=== PATIENT | female | born 1960 | race Hispanic/Latino ===

== ENCOUNTER 2017-12-11 08:21 | Emergency (ER) | payer OTHER, MEDICARE ==
[2017-12-11] MEDS ORDERED: IBUPROFEN 600 MG TABLET ONE (08:52)
[2017-12-11 09:14] LABS: RAPID GROUP A STREP NEGATIVE (NEGATIVE)
[2017-12-11] MEDS ORDERED: DEXAMETHASONE SOD PHOSPHATE 10MG/ML 1ML VIAL ONE (10:10)
[2018-01-23] MEDS ORDERED: PREG75 PO (12:16)
[2018-01-23] MEDS ORDERED: TRAM50TA4 PO (12:16)
[2018-01-23] MEDS ORDERED: CALC-866 PO (12:16)
[2018-01-23] MEDS ORDERED: ATOR10TA69 PO (12:16)
[2018-01-23] MEDS ORDERED: LISI1TAB9 PO (12:16)
== END 2017-12-11 10:43 | disposition home or self-care (01) ==
LOC: EDH 08:21
DX: J10.1 Influenza due to other identified influenza virus with other respiratory manifestations (principal); R50.81 Fever presenting with conditions classified elsewhere; E78.5 Hyperlipidemia, unspecified; I10 Essential (primary) hypertension; Z98.890 Other specified postprocedural states
CPT/HCPCS: 71046; 87804 ×2; 87880; 96372; 99285; J1100

== ENCOUNTER 2018-01-24 07:46 | Day surgery (SDC) | payer OTHER, MEDICARE ==
[~2018-01-24] VITALS: Ht 154.9 cm; Wt 74.8 kg
[~2018-01-24 07:46] MED LIST: ATOR10TA69 PO; CALC-866 PO; LISI1TAB9 PO; PREG75 PO; SODIUM CHLORIDE 0.9% 1000ML 1,000 ML IV ONE; TRAM50TA4 PO
[2018-01-24 07:53] VITALS: BP 99/51
[2018-01-24] MEDS ORDERED: PROPOFOL 10 MG/ML 20ML VIAL IV ONE ×2 (09:35)
[2018-01-24] MEDS ORDERED: FENTANYL CITRATE PF 50 MCG/1 ML 2ML VIAL ONE (09:35)
[2018-01-24 10:08] VITALS: BP 99/54
== END 2018-01-24 10:47 ==
LOC: DAH 07:46
PROVIDERS: ATTEND Internal Medicine Gastroenterology
DX: Z09 Encounter for follow-up examination after completed treatment for conditions other than malignant neoplasm (principal); Z86.010 Personal history of colon polyps; D12.1 Benign neoplasm of appendix; I10 Essential (primary) hypertension; E78.5 Hyperlipidemia, unspecified; Z90.49 Acquired absence of other specified parts of digestive tract; Z98.890 Other specified postprocedural states; Z68.32 Body mass index [BMI] 32.0-32.9, adult; Z79.899 Other long term (current) drug therapy
CPT/HCPCS: 45380; 88305; A4606; J2704 ×2; J3010; J7030

== ENCOUNTER 2018-10-08 18:07 | Emergency (ER) | payer OTHER, MEDICARE ==
[~2018-10-08 18:07] MED LIST changes: -SODIUM CHLORIDE 0.9% 1000ML 1,000 ML IV ONE
[2018-10-08 19:17] LABS: RAPID GROUP A STREP NEGATIVE (NEGATIVE)
[2018-10-08] MEDS ORDERED: DEXAMETHASONE SOD PHOSPHATE 10MG/ML 1ML VIAL ONE (19:47)
== END 2018-10-08 19:58 | disposition home or self-care (01) ==
LOC: EDH 18:07
DX: J10.1 Influenza due to other identified influenza virus with other respiratory manifestations (principal); E78.5 Hyperlipidemia, unspecified; I10 Essential (primary) hypertension
CPT/HCPCS: 87804 ×2; 87880; 96372; 99283; J1100

== ENCOUNTER 2018-10-19 08:31 | Emergency (ER) | payer OTHER, MEDICARE ==
[2018-10-19] MEDS ORDERED: ACETAMINOPHEN 325 MG TAB ONE (08:55)
[2018-10-19] MEDS ORDERED: IPRATROPIUM/ALBUTEROL SULFATE 3 ML SOLUTION IH ONE (08:58)
== END 2018-10-19 10:59 | disposition home or self-care (01) ==
LOC: EDH 08:31
DX: J18.8 Other pneumonia, unspecified organism (principal); I10 Essential (primary) hypertension; E78.5 Hyperlipidemia, unspecified
CPT/HCPCS: 71046; 94640

== ENCOUNTER 2019-01-30 12:00 | Emergency (ER) | payer OTHER, MEDICARE ==
[2019-01-30 12:39] LABS: APPEARANCE,URINE Clear (CLEAR); BILIRUBIN,URINE Negative (NEGATIVE); COLOR,URINE Yellow (YELLOW); GLUCOSE, URINE (UA) Negative (NEGATIVE); KETONES,URINE Negative (NEGATIVE); LEUKOCYTE ESTERASE ,URINE Moderate (NEGATIVE); NITRATE,URINE Negative (NEGATIVE); OCCULT BLOOD,URINE Nonhemolyzed Trace (NEGATIVE); PROTEIN,URINE Negative (NEGATIVE); UROBILINOGEN,URINE 0.2 mg/dL (0.2-1.0)
[2019-01-30] MEDS ORDERED: ONDANSETRON ODT 4 MG TAB ONE (12:39)
[2019-01-30] MEDS ORDERED: MORPHINE SULFATE 5 MG/ML VIAL ONE (12:40)
[2019-01-30 12:57] LABS: BACTERIA,URINE Rare /HPF (None Seen); RBC,URINE 0-1 /HPF (0-1); SQUAMOUS EPITHELIAL CELL,UR Rare /HPF (0-2)
== END 2019-01-30 13:30 | disposition home or self-care (01) ==
LOC: EDH 12:00
DX: N39.0 Urinary tract infection, site not specified (principal); M54.5 Low back pain; I10 Essential (primary) hypertension; E78.5 Hyperlipidemia, unspecified; Z98.890 Other specified postprocedural states
CPT/HCPCS: 72100; 81001; 96372; 99284; J2270

== ENCOUNTER 2019-05-11 07:53 | Emergency (ER) | payer OTHER, MEDICARE ==
[2019-05-11 08:44] LABS: APPEARANCE,URINE CLEAR (CLEAR); BILIRUBIN,URINE NEGATIVE (NEGATIVE); COLOR,URINE YELLOW (YELLOW); GLUCOSE, URINE (UA) NEGATIVE (NEGATIVE); KETONES,URINE NEGATIVE (NEGATIVE); LEUKOCYTE ESTERASE ,URINE SMALL (NEGATIVE); NITRATE,URINE NEGATIVE (NEGATIVE); OCCULT BLOOD,URINE SMALL (NEGATIVE); PROTEIN,URINE NEGATIVE (NEGATIVE); UROBILINOGEN,URINE 0.2 mg/dL (0.2-1.0)
[2019-05-11] MEDS ORDERED: ONDANSETRON HCL 4 MG/2 ML VIAL ONE (08:44)
[2019-05-11] MEDS ORDERED: SODIUM CHLORIDE 0.9% 1000ML 1,000 ML IV ONE (08:45)
[2019-05-11] MEDS ORDERED: MORPHINE SULFATE 4 MG/1ML SYG ONE ×2 (08:45→10:06)
[2019-05-11 09:10] LABS: BACTERIA,URINE Few /HPF (None Seen); MUCUS,URINE Few LPF (None Seen); RBC,URINE 0-1 /HPF (0-1); SQUAMOUS EPITHELIAL CELL,UR Moderate /HPF (0-2)
[2019-05-11 09:22] LABS: BASOPHILS % (AUTO) 0.8 % (0.0-5.0); HEMATOCRIT 40.7 % (36-48); LYMPHOCYTES % (AUTO) 25.1 % (21.0-51.0); MEAN CORPUSCULAR HEMOGLOBIN 29.9 pg (27.0-33.0); MEAN CORPUSCULAR HGB CONC 33.9 g/dL (32.0-36.0); MEAN CORPUSCULAR VOLUME 88.1 fL (79-99); MONOCYTES % (AUTO) 5.9 % (3.0-13.0); NEUTROPHILS % (AUTO) 66.2 % (40.0-77.0); NUCLEATED RED BLOOD CELLS 0.1 % (0.0-0.19); PLATELET COUNT (AUTO) 251 K/uL (130-400); RED BLOOD CELL COUNT(AUTO) 4.62 MIL/uL (4.00-5.50); RED CELL DISTRIBUTION WIDTH 14.5 % (11.0-15.5); WHITE BLOOD COUNT (AUTO) 6.7 K/uL (4.8-10.8)
[2019-05-11 09:37] LABS: CREATININE 0.8 mg/dL (0.5-1.5); POTASSIUM 3.8 mmol/L (3.5-5.1)
[2019-05-11 09:43] LABS: ALBUMIN 3.5 g/dL (3.5-5.0); BILIRUBIN,TOTAL 0.2 mg/dL (0.2-1.0); TOTAL PROTEIN, SERUM 6.5 g/dL (6.0-8.3)
[2019-05-11] MEDS ORDERED: CEFTRIAXONE SODIUM 1 GM ONE (10:06)
== END 2019-05-11 11:37 | disposition home or self-care (01) ==
LOC: EDH 07:53
DX: K52.9 Noninfective gastroenteritis and colitis, unspecified (principal); N39.0 Urinary tract infection, site not specified; I10 Essential (primary) hypertension; E78.5 Hyperlipidemia, unspecified
CPT/HCPCS: 36415; 74177; 80053; 81001; 83690; 85025; 93005; 96361; 96374; 96375; 96376; 99285; J0696; J2270 ×2; J2405; J7030

== ENCOUNTER 2019-05-26 13:38 | Emergency (ER) | payer OTHER, MEDICARE ==
[2019-05-26] MEDS ORDERED: KETOROLAC TROMETHAMINE 60 MG/2 ML VIAL ONE (13:52)
[2019-05-26] MEDS ORDERED: ACETAMINOPHEN EXTRA STRENGTH 500 MG TABLET ONE (13:52)
[2019-05-26] MEDS ORDERED: LIDOCAINE 5% TOPICAL PATCH TP ONE (13:52)
[2019-05-26] MEDS ORDERED: ORPHENADRINE CITRATE 30 MG/ML ML ONE (13:52)
== END 2019-05-26 15:09 | disposition home or self-care (01) ==
LOC: EDH 13:38
DX: M54.5 Low back pain (principal); I10 Essential (primary) hypertension; E78.5 Hyperlipidemia, unspecified; Z98.890 Other specified postprocedural states
CPT/HCPCS: 96372 ×2; 99284; J1885; J2360

== ENCOUNTER → 2023-07-10 | Outpatient (CLI) | payer OTHER, MEDICARE ==
[~2023-07-10] MED LIST changes: +LISI1TAB49 PO; -LISI1TAB9 PO
== END | disposition home or self-care (01) ==
LOC: RAH 12:42
PROVIDERS: ATTEND Internal Medicine
DX: I35.0 Nonrheumatic aortic (valve) stenosis (principal); R01.1 Cardiac murmur, unspecified
CPT/HCPCS: 93306

== ENCOUNTER → 2023-09-25 | Outpatient (CLI) | payer OTHER | END | disposition home or self-care (01) | LOC: RAH 12:09 | PROVIDERS: ATTEND Internal Medicine Cardiovascular Disease | DX: Z13.6 Encounter for screening for cardiovascular disorders (principal) | CPT/HCPCS: 75571 ==

== ENCOUNTER → 2024-06-10 | Outpatient (CLI) | payer MEDICARE, OTHER | END | disposition home or self-care (01) | LOC: CANPRECLI → RAH 08:01 | PROVIDERS: ATTEND Internal Medicine | DX: M85.88 Other specified disorders of bone density and structure, other site (principal); Z78.0 Asymptomatic menopausal state | CPT/HCPCS: 77080 ==

== ENCOUNTER 2025-06-04 08:55 | Day surgery (SDC) | payer OTHER ==
[2025-06-02 12:01] LABS: IMMATURE GRANULOCYTE ABSOLUTE 0.02 K/uL (0-1); NUCLEATED RED BLOOD CELLS 0.0 % (0.0-0.19); PLATELET COUNT (AUTO) 327 K/uL (130-400); RED BLOOD CELL COUNT(AUTO) 4.73 MIL/uL (4.00-5.50); RED CELL DISTRIBUTION WIDTH 16.9 % (11.0-15.5); WHITE BLOOD COUNT (AUTO) 6.9 K/uL (4.8-10.8)
[2025-06-02 12:08] LABS: CREATININE 0.8 mg/dL (0.5-1.0); GLOMERULAR FILTR. RATE CALC 81.0 mL/min (>90); GLUCOSE,RANDOM 171.0 mg/dL (70-105); SODIUM SERUM 144.0 mmol/L (136-145); UREA NITROGEN, BLOOD 13.0 mg/dL (7-18)
[2025-06-02 12:17] LABS: INR 1.0 (0.85-1.15)
--- NOTE | 2025-06-02 12:18 | EKG ---
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
[2025-06-02 12:53] VITALS: BP 162/75; PULSE 71; RESP 18; TEMP 98.1
[2025-06-02 14:41] LABS: APPEARANCE,URINE CLEAR (CLEAR); GLUCOSE, URINE (UA) NEGATIVE (NEGATIVE); LEUKOCYTE ESTERASE ,URINE MODERATE Leu/uL (NEGATIVE); NITRATE,URINE NEGATIVE (NEGATIVE); OCCULT BLOOD,URINE NEGATIVE (NEGATIVE)
[2025-06-02 14:56] LABS: ADD UA MICROSCOPIC YES
[2025-06-02 15:21] LABS: SQUAMOUS EPITHELIAL CELL,UR Moderate /HPF (0-2)
--- NOTE | 2025-06-03 04:57 | HMCIMG ---
EXAM: CR Chest, 1 view CLINICAL HISTORY: Preoperative evaluation. COMPARISON: Chest radiograph dated 10/19/2018. FINDINGS: Small scarring around the left CP angle. The lungs show no infiltrates or other acute findings. No pleural effusion or pneumothorax. The cardiomediastinal silhouette is within normal limits. No acute osseous abnormality. IMPRESSION: No acute cardiopulmonary process is evident. Small scarring around the left CP angle is a new finding compared to the previous chest radiograph dated 10/19/2018. /[place]
[~2025-06-04] VITALS: Ht 152.4 cm; Wt 79.6 kg
[2025-06-04] VITALS (10 sets, daily range): BP systolic 121–153; BP diastolic 51–83; PULSE 60–70; RESP 12–18; TEMP 97.9
[~2025-06-04 08:55] MED LIST changes: -ATOR10TA69 PO; +ATOR40TA69 PO; +CALC-1174 PO; +DULO30CA52 PO; +FERR-82 PO; +FLUT15.845 NS; +GABA-529 PO; +LEVO5TAB13 PO; -LISI1TAB49 PO; +METO25TA6 PO; +OMEG1CAP31 PO; +OMEP-420 PO; +POWER C PO; -PREG75 PO; +TIZA-211 PO; -TRAM50TA4 PO; +TUMERIC CURCUMIN PO; +VALS80TA30 PO; +VITA-395 PO
[2025-06-04] MEDS: 0.9%NACL 1000ML 1,000 ML IV SCH (09:26)
[2025-06-04] MEDS ORDERED: LIDOCAINE HCL 400MG/20ML VIAL ONE (12:26)
[2025-06-04] MEDS ORDERED: IOHEXOL 350 MG/ML 100ML INFUS..BTL IV ONE (12:26)
[2025-06-04] MEDS ORDERED: HEParin-NS 1,000 UNIT/500 ML 1,000 ML IV ONE (12:27)
[2025-06-04] MEDS ORDERED: NITROGLYCERIN 50MG VIAL ONE (12:38)
[2025-06-04] MEDS ORDERED: MIDAZOLAM HCL 1 MG/ML 2ML VIAL ONE (12:40)
[2025-06-04] MEDS ORDERED: IOHEXOL-350 50ML VIAL IV ONE (12:45)
--- NOTE | 2025-06-04 14:57 | PRN ---
DATE OF PROCEDURE: 06/04/2025 PROCEDURE PERFORMED: RIGHT AND LEFT HEART CATHETERIZATION, LEFT VENTRICULOGRAM, LEFT AND RIGHT SELECTIVE CORONARY ANGIOGRAM, RIGHT COMMON FEMORAL ANGIOGRAM, PERCLOSE SUTURE CLOSURE OF THE RIGHT COMMON FEMORAL ARTERY, AND CONSCIOUS SEDATION INSIDE POLISHER: Celestina Dorsey MD, [facility] INDICATION: Severe symptomatic aortic stenosis with exertional angina at 1/4 block of ambulation and severe aortic stenosis by 2D echo 04/29/2025 demonstrating an LVEF of 65-70%, grade 2 diastolic dysfunction, severe aortic stenosis and peak aortic valve gradient of 106 mm of mercury, mean gradient of 67 mm of mercury, and aortic valve area of 0.8 cm2. PROCEDURE NOTE: After informed consent was obtained the patient was prepped and draped in the usual sterile fashion. A 6 Afghan 45 cm long arterial sheath was inserted in the right common femoral artery using a micropuncture technique with ultrasound guidance with a front wall, first pass puncture. This was performed after fluoroscopic identification of bony landmarks to facilitate a more accurate puncture of the right common femoral artery. The arterial sheath was aspirated and flushed. A seven Afghan venous sheath was inserted in the right common femoral artery with ultrasound guidance without difficulty. A seven Afghan S tip [place]-Parag catheter was advanced using fluoroscopic guidance and balloon floatation to the RA, RV, PA, and pulmonary capillary wedge position measuring pressures and PA saturations as well. A 5F pigtail catheter was then advanced to the ascending aorta and confirmation of identical pressures from the 5F pigtail and the long 45 cm arterial sheath was verified. The five Afghan pigtail catheter was then used to cross the stenotic aortic valve with a straight 038 wire without difficulty. Simultaneous pressure measurements from LV and descending thoracic aorta were obtained followed by Jac cardiac output determinations and thermodilution cardiac output determinations, and calculation of valve areas using both methods. The five Afghan pigtail catheter was then used for left ventriculogram and a pullback procedure was performed. The catheter was then withdrawn through the long 45 cm arterial sheath. A 6F JL-4 was then advanced to the ascending aorta over a J-tipped guidewire, was aspirated and flushed, and was used for selective left coronary angiograms in multiple obliquities. A JR-4 was advanced in a similar fashion to the ascending aorta over a J-tipped guidewire and was used for selective right coronary angiograms in multiple obliquities with findings as outlined below. A right common femoral angiogram was performed to assess suitability for Perclose suture closure and the Perclose device was deployed in standard fashion. Perclose suture closure was successful without bleeding or hematoma. The patient tolerated the procedure well and was returned to the holding area in stable condition. FINDINGS: RIGHT HEART CATHETERIZATION: RA pressure was 9 mm of mercury on the A-wave, 4 mm of mercury on the V-wave, and 6 mm of mercury mean RA pressure RV pressure was 50/9 mm of mercury. PA pressure was 50/15 mm of mercury with a mean PA pressure of 27 mm of mercury. Pulmonary capillary wedge pressure was 14 mm of mercury on the A-wave, 7 mm of mercury on the V-wave, and mean pulmonary capillary wedge pressure was 7 mm of mercury. Jac cardiac output calculation was 2.8 L/min with a cardiac index of 1.6 L/min per meter squared. Thermodilution cardiac output was 5 L/min with a cardiac index of 2.8 L/min per meter squared. LEFT HEART HEMODYNAMICS: The patient's LVEDP was 21 mm of mercury. Aortic valve peak to peak gradient was 43 mm of mercury. Aortic valve mean gradient was 36 mm of mercury. Aortic valve area using Jac cardiac output was 0.6 cm2. Aortic valve area using thermodilution cardiac output was 1.0 cm2. LEFT VENTRICULOGRAM: There was hyperdynamic LV wall motion with an LVEF of greater than 65%. There was no mitral regurgitation. CORONARY ANGIOGRAM: LEFT MAIN: The left main coronary artery was normal and there was no dampening or ventricularization of the pressure waveform. LEFT ANTERIOR DESCENDING: The left anterior descending and diagonal branches were normal. LEFT CIRCUMFLEX: The left circumflex was nondominant and normal as were the obtuse marginal branches. RAMUS INTERMEDIATE BRANCH: There was no ramus intermediate branch. RIGHT CORONARY ARTERY: The right coronary artery was dominant, large, and normal. The PDA and posterolateral ventricular branches were also normal. IMPRESSION: Normal coronary arteries. Severe, symptomatic (exertional angina) aortic stenosis with aortic valve area of 0.6 cm2 to 1.0 cm2. Bicuspid appearing aortic valve by 2D echo 04/29/2025. No mitral regurgitation. No mitral stenosis. Moderate pulmonary hypertension with PA pressure of 50/15 mm of mercury. RECOMMENDATION: Proceed with aortic valve replacement. TAVR versus SAVR assessment. CT angio with TAVR protocol. COMPLICATIONS OF PROCEDURE: None, the patient tolerated the procedure well and was returned to her room in stable condition. HEMOSTASIS: Perclose suture closure successful without bleeding or hematoma. ESTIMATED BLOOD LOSS: Less than 10 mL. CONTRAST TOTAL: 105 mL. CELESTINA DORSEY MD Jun 04, 2025 14:57
[2025-06-04] MEDS ORDERED: 0.9%NACL 1000ML 1,000 ML IV SCH (15:00)
--- NOTE | 2025-06-04 19:32 | NUR ---
PATIENT DISCHARGED FROM THE HOSPITAL VIA WHEELCHAIR BY SUSANA GUZMÁN AND ASSISTED INTO PRIVATE VEHICLE DRIVEN BY SON
== END 2025-06-04 19:32 | disposition home or self-care (01) ==
LOC: DAH 08:55
PROVIDERS: ATTEND Internal Medicine Cardiovascular Disease
DX: I35.0 Nonrheumatic aortic (valve) stenosis (principal); I20.89 Other forms of angina pectoris; I11.0 Hypertensive heart disease with heart failure; I50.32 Chronic diastolic (congestive) heart failure; E78.5 Hyperlipidemia, unspecified; F41.9 Anxiety disorder, unspecified; F32.A Depression, unspecified; Z98.890 Other specified postprocedural states; Z79.899 Other long term (current) drug therapy
CPT/HCPCS: 80048; 83880; 85025; 85610; 85730; 87086 ×2; 81001; 36415; 71045; 93005; 93460; 87186; 99157 ×4; 99156; C1769 ×2; C1894 ×3; C1760; C1893; Q9965; J3010; J3490 ×2; J7030; J2250; J1644; Q9967 ×2; A4215; A4222; A4221; A4663; A4216; A4606; A4223 ×3

== ENCOUNTER 2025-06-11 10:37 | Emergency (ER) | payer OTHER ==
[~2025-06-11] VITALS: Ht 149.9 cm; Wt 77.1 kg
[2025-06-11 10:42] VITALS: TEMP 98.4
[2025-06-11 11:22] LABS: IMMATURE GRANULOCYTE ABSOLUTE 0.03 K/uL (0-1); NUCLEATED RED BLOOD CELLS 0.0 % (0.0-0.19); PLATELET COUNT (AUTO) 326 K/uL (130-400); RED BLOOD CELL COUNT(AUTO) 4.41 MIL/uL (4.00-5.50); RED CELL DISTRIBUTION WIDTH 17.1 % (11.0-15.5); WHITE BLOOD COUNT (AUTO) 7.5 K/uL (4.8-10.8)
--- NOTE | 2025-06-11 11:28 | ERN ---
General Chief Complaint: Chest Pain Stated Complaint: CP Time Seen by MD: 10:43 Source: patient History of Present Illness Initial Comments Ms. Pedroza is a 65-year-old female came to the ED with symptoms of exertional chest pain since one week. Patient underwent left heart catheterization last Monday with Dr. Ferguson and was found to have severe aortic stenosis that needed replacement. Patient has been having episodes of exertional chest pain and shortness of breath, that is relieved by rest. The patient states she has pressure-like sensation in the center of the chest. Pt has had similar symptoms in the past mostly brought upon by exertion. She gets SOB when walking across a parking lot. Pt also has SOB when lying flat on the bed but denies pedal edema, palpitations, nausea, vomiting, dizziness, fever and cough. Allergies: Coded Allergies: No Known Allergies (Unverified Allergy, Unknown, 06/08/14) Home Meds Reported Medications Calcium Carbonate/Vitamin D3 (Calcium 500-Vit D3 600 Tablet) 500 Mg Calcium-15 Mcg (600 Unit) Tablet, 1 EACH PO BID, TAB 06/02/25 [Tumeric Curcumin ] No Conflict Check, 500 MG PO AM 06/02/25 Vitamin E (Dl,Tocopheryl Acet) (Vitamin E) 180 Mg (400 Unit) Capsule, 180 MG PO AM, CAP 06/02/25 Ferrous Sulfate (Iron) 325 Mg (65 Mg Iron) Tablet, 325 MG PO AM, TAB 06/02/25 [Power C] No Conflict Check, 2 TAB PO 06/02/25 Gabapentin (Gabapentin) 100 Mg Capsule, 300 MG PO TID for NERVE PAIN , CAP 06/02/25 Omeprazole (Omeprazole) 20 Mg Tab.rap.dr, 20 MG PO AM 06/02/25 Tizanidine HCl (Tizanidine HCl) 4 Mg Tablet, 4 MG PO PM for MUSCLE RELAXER, TAB 06/02/25 Duloxetine HCl (Duloxetine HCl) 30 Mg Capsule.dr, 30 MG PO AD for ANXIETY, CAP 06/02/25 Atorvastatin Calcium (LIPITOR) 40 Mg Tablet, 40 MG PO PM, TAB 06/02/25 Valsartan (Valsartan) 80 Mg Tablet, 80 MG PO AM, TAB 06/02/25 Fluticasone Propionate (Fluticasone Propionate) 50 Mcg/Actuation [place].susp, 15.8 ML NS AD 06/02/25 [place]-3 Acid Ethyl Esters (Lovaza) 1 Gram Capsule, 1 GM PO AM, CAP 06/02/25 Levocetirizine Dihydrochloride (Levocetirizine Dihydrochloride) 5 Mg Tablet, 5 MG PO PM, TAB 06/02/25 Metoprolol Tartrate (Metoprolol Tartrate) 25 Mg Tablet, 25 MG PO BID, TAB 06/02/25 Cholecalciferol (Vitamin D3) (Vitamin D3) 5,000 Unit Tablet, 5000 UNIT PO DAILY, TAB 01/23/18 Past Medical History Past Medical History: CAD, High Cholesterol, Heart Disease, Hypertension Past Surgical History: Other Surgical History Other: right and left heart cath ROS Dictation CONSTITUTIONAL: No chills, no fever, no weakness, no diaphoresis, no malaise. HEAD/FACE: No signs of trauma. EENT: No eye pain, no blurred vision, no tearing, no double vision, no ear pain, no ear discharge, no nose pain, no nasal congestion, no throat pain, no throat swelling, no mouth pain. RESPIRATORY: No cough, orthopnea, no wheezing CARDIOVASCULAR: chest pain, no edema, no palpitations, no syncope. GASTROINTESTINAL/ABDOMINAL: No abdominal pain, no constipation, no diarrhea, no nausea, no vomiting. GENITOURINARY: No abnormal discharge, no dysuria, no frequent urination, no hematuria. No complaints of pain in the genitals. MUSCULOSKELETAL: No back pain, no gout, no joint pain, no joint swelling, no muscle pain, no muscle stiffness, no neck pain. INTEGUMENTARY: No change in color, no change in hair/nails, no dryness, no lesion, no lumps, no rash. NEUROLOGICAL/PSYCH: No anxiety, not depressed, no emotional problem, no he adache, no numbness, no pre-existing deficit, no history of seizures, no tremors, no weakness. HEMATOLOGIC/LYMPHATIC: Not anemic, no history of blood clots, no apparent bleeding, no bruising, glands not swollen. All Systems Negative, Except as Noted. Physical Exam Physical Exam Dictation VITAL SIGNS: Reviewed. GENERAL APPEARANCE: Alert, oriented x3 HEAD AND FACE: Non-traumatic. EYES: PERRL, pink conjunctivas, eyelid no trauma, anterior chamber clear. EARS: Pinnas intact and no signs of trauma or erythema. Ear canals clear and no discharge. TMs no erythema. NOSE: No discharge, no bleeding. OROPHARYNX: Mouth normal, teeth no caries, tongue pink. Pharynx clear, no erythema. Tonsils no exudates, no abscesses noted. Mucous membrane moist. NECK: Supple, non-tender, no thyromegaly, no masses, no JVD, no bruits. BREAST: Deferred. CHEST: No tenderness, no crepitus, no paradoxical movement, no retractions. LUNGS: Clear, well-ventilated, symmetric, no rales, no wheezing, no rhonchi, no stridor, good breath sounds bilaterally. HEART: Regular rate, regular rhythm, systolic murmur, no gallops. VASCULAR: No peripheral edema. ABDOMEN: Soft, positive bowel sounds, nondistended, no guarding, nontender, no rebound, no masses no hepatomegaly, no splenomegaly, no Prakash's sign, no hernias. RECTAL: Deferred. GENITAL: Deferred. NEUROLOGICAL: Normal speech, gross motor function intact, gross sensory function intact. MUSCULOSKELETAL: Neck nontender, full range of motion, back nontender, full range of motion. EXTREMITIES: Nontender, full range of motion. SKIN: Color pink, dry, no turgor, no rash, no lacerations, no abrasions, no contusions. LYMPHATICS: Deferred. Results Laboratory and Microbiology Lab and Micro Result Laboratory Tests Test 06/11/25 10:58 White Blood Count 7.5 K/uL (4.8-10.8) Red Blood Count 4.41 MIL/uL (4.00-5.50) Hemoglobin 11.5 g/dL (12.0-16.0) L Hematocrit 34.7 % (36-48) L Mean Corpuscular Volume 78.7 fL (79-99) L Mean Corpuscular Hemoglobin 26.1 pg (27.0-33.0) L Mean Corpuscular Hemoglobin Concent 33.1 g/dL (32.0-36.0) Red Cell Distribution Width 17.1 % (11.0-15.5) H Platelet Count 326 K/uL (130-400) Mean Platelet Volume 11.2 fL (7.5-10.5) H Immature Granulocyte % (Auto) 0.4 % (0-1) Neutrophils (%) (Auto) 56.1 % (40.0-77.0) Lymphocytes (%) (Auto) 29.1 % (21.0-51.0) Monocytes (%) (Auto) 11.0 % (3.0-13.0) Eosinophils (%) (Auto) 2.6 % (0.0-8.0) Basophils (%) (Auto) 0.8 % (0.0-5.0) Neutrophils # (Auto) 4.2 K/uL (1.8-7.7) Lymphocytes # (Auto) 2.2 K/uL (1.0-4.8) Monocytes # (Auto) 0.8 K/uL (0.1-1.0) Eosinophils # (Auto) 0.19 K/uL (0.00-0.70) Basophils # (Auto) 0.06 K/uL (0.00-0.20) Absolute Immature Granulocyte (auto 0.03 K/uL (0-1) Nucleated Red Blood Cells 0.0 % (0.0-0.19) Sodium Level 139 mmol/L (136-145) Potassium Level 4.1 mmol/L (3.5-5.1) Chloride Level 105 mmol/L (101-111) Carbon Dioxide Level 28 mmol/L (21-32) Blood Urea Nitrogen 13 mg/dL (7-18) Creatinine 0.7 mg/dL (0.5-1.0) Glomerular Filtration Rate Calc 95 mL/min (>90) Random Glucose 116 mg/dL (70-105) H Total Calcium 9.0 mg/dL (8.5-10.1) Troponin I High Sensitivity 8 ng/L (4-50) B-Type Natriuretic Peptide 115 pg/mL (0-100) H MDM CC: Patient has exertional chest pain since yesterday. Patient is s/p left heart catheterization last monday requiring aortic valve replacement for se steffany aortic stenosis. Pt still pending the surgery. PMH: Hypertension, hyperlipidemia, severe aortic stenosis, LVEF 65-70%(04/20). Vitals: BP in 160s on admission, returned to normal, Rest of the vitals are normal. Labs: Mostly unremarkable other than BNP 115. Cardiac Troponin's and EKG were normal. PE: Mostly unremarkable other than orthopnea and systolic murmur. Clear lungs, normal JVP, no pedal edema. Chest X-ray is unremarkable. Reviewed pts records from previous admission conforming patent coronaries. Pt case was discussed with Dr. Fergsuon, and since the patient is stable, not in acute distress and acute pathologies were ruled out, advised to be discharged. Pt was advised to F/U with Dr. Ferguson in a week. ED Course Orders Procedure Category Date Status Time 12 Lead Ekg Tracing- EKG 06/11/25 Complete Technical 10:44 Cbc With Differential LAB 06/11/25 Complete 11:00 Chest 1vw RAD 06/11/25 Resulted 11:00 Troponin I High LAB 06/11/25 Complete Sensitivity 11:00 Basic Metabolic Panel LAB 06/11/25 Complete 11:00 B-Type Natriuretic LAB 06/11/25 Complete Peptide 11:25 Vital Signs Date Time Temp Pulse Resp B/P (MAP) Pulse Ox O2 Delivery O2 Flow Rate FiO2 06/11/25 14:00 64 18 153/72 98 Room Air* 0 21 06/11/25 10:42 98.4 62 18 168/71 97 Room Air* 0 21 06/11/25 10:38 98.4 62 18 168/71 97 Room Air 0 DX & DISP Disposition: Discharge Departure Impression: Primary Impression: Aortic stenosis, severe Condition: Stable Additional Instructions: Do not involve in strenuous physical activity. Follow-up with Dr Ferguson in one week. Referrals: CELESTINA FERGUSON MD I have reviewed the case, and I agree with, Diagnosis and Plan I have examined patient, & reviewed all documents, & agreed W/ the Diagnosis, and Plan I performed a substantive portion of the visit. I have reviewed and personally made and approve the management plan that is documented in the notes by myself with MIKE/resident. I acknowledged full responsibility for the patient's management plan. 65-year-old female with a known severe aortic stenosis. Troponin is EKG is stable. Vitals are stable. No clinical signs of heart failure. Patient's cutter down, Dr. Ferguson, was consulted. We discussed the case since this the patient has no acute signs of heart failure can follow up as an outpatient with cardiovascular surgery because she will likely need a surgical aortic valve replacement. FOX JOSE MD Jun 11, 2025 11:28 EVAN MONCADA DO Jun 11, 2025 18:04
[2025-06-11 11:31] LABS: CREATININE 0.7 mg/dL (0.5-1.0); GLOMERULAR FILTR. RATE CALC 95.0 mL/min (>90); GLUCOSE,RANDOM 116.0 mg/dL (70-105); SODIUM SERUM 139.0 mmol/L (136-145); UREA NITROGEN, BLOOD 13.0 mg/dL (7-18)
--- NOTE | 2025-06-11 11:43 | EKG ---
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
--- NOTE | 2025-06-11 13:52 | HMCIMG ---
EXAM: XR Chest, 1 View. CLINICAL HISTORY: 65-year-old female, chest pain. COMPARISON: 06/02/2025 FINDINGS: LUNGS: Mild pulmonary congestion. The lungs are otherwise clear. No consolidation. PLEURAL SPACES: No pleural effusion or pneumothorax. HEART: Mild cardiomegaly. BONES: No acute osseous abnormality. IMPRESSION: 1. Mild cardiomegaly and mild pulmonary congestion, similar to prior XR Chest 06/02/2025. /[place]
[2025-06-11 14:00] VITALS: BP 153/72; PULSE 64; RESP 18; O2SAT 98
[2025-07-17] MEDS ORDERED: FISH1CAP27 PO (16:04)
[2025-07-17] MEDS ORDERED: CHOL2000 PO (16:04)
[2025-07-18] MEDS ORDERED: FURO20TA4 PO (07:09)
== END 2025-06-11 14:10 | disposition home or self-care (01) ==
LOC: EDH 10:37
DX: I35.0 Nonrheumatic aortic (valve) stenosis (principal); I25.10 Atherosclerotic heart disease of native coronary artery without angina pectoris; E78.00 Pure hypercholesterolemia, unspecified; I10 Essential (primary) hypertension; Z79.899 Other long term (current) drug therapy; Z95.2 Presence of prosthetic heart valve
CPT/HCPCS: 36415; 71045; 80048; 83880; 84484; 85025; 93005; 99285

== ENCOUNTER 2025-09-08 13:55 | Emergency (ER) | payer OTHER, MEDICARE ==
[~2025-09-08] VITALS: Ht 149.9 cm; Wt 74.8 kg
[~2025-09-08 13:55] MED LIST changes: +ASPI-1005 PO; -CALC-1174 PO; -CALC-866 PO; +FISH1CAP27 PO; -LEVO5TAB13 PO; +MAGN100T PO; -OMEG1CAP31 PO; -POWER C PO; -TUMERIC CURCUMIN PO; -VALS80TA30 PO; -VITA-395 PO; +WARF3TAB7 PO
[2025-09-08 14:49] LABS: IMMATURE GRANULOCYTE ABSOLUTE 0.03 K/uL (0-1); NUCLEATED RED BLOOD CELLS 0.0 % (0.0-0.19); PLATELET COUNT (AUTO) 440 K/uL (130-400); RED BLOOD CELL COUNT(AUTO) 4.40 MIL/uL (4.00-5.50); RED CELL DISTRIBUTION WIDTH 21.3 % (11.0-15.5); WHITE BLOOD COUNT (AUTO) 7.5 K/uL (4.8-10.8)
[2025-09-08 14:57] LABS: CREATININE 0.8 mg/dL (0.5-1.0); GLOMERULAR FILTR. RATE CALC 81.0 mL/min (>90); GLUCOSE,RANDOM 126.0 mg/dL (70-105); SODIUM SERUM 145.0 mmol/L (136-145); UREA NITROGEN, BLOOD 13.0 mg/dL (7-18)
[2025-09-08 15:13] LABS: INR 2.78 (0.85-1.15)
--- NOTE | 2025-09-08 15:51 | ERN ---
General Chief Complaint: Post-Op Problem Stated Complaint: RT GROIN SEROMA, POST UP HEART CATH Time Seen by MD: 14:02 History of Present Illness Initial Comments 65-year-old female who presents for swelling to the right groin. Patient had a right groin catheterization on 08/17/2025, about a week ago she had a seroma that has drained by Interventional Radiology. She reports that since then it has returned. She denies any fevers or systemic symptoms. She has been moderate pain. She does take warfarin. Allergies: Coded Allergies: No Known Allergies (Unverified Allergy, Unknown, 06/08/14) Home Meds Reported Medications Aspirin (ASPIRIN 81MG CHEW TAB) 81 Mg Tab.chew, 1 TAB PO DAILY for 30 Days, #30 TAB 0 Refills 09/01/25 Metoprolol Tartrate (Metoprolol Tartrate) 25 Mg Tablet, 1 TAB PO BID for 30 Days, #60 TAB 0 Refills 09/01/25 Tizanidine HCl (Tizanidine HCl) 4 Mg Tablet, 1 TAB PO HS for 30 Days, #30 TAB 0 Refills 09/01/25 Omeprazole (Omeprazole) 20 Mg Tab.rap.dr, 1 TAB PO DAILY for 30 Days, #30 TAB 0 Refills 09/01/25 Magnesium Glycinate (Mag Glycinate) 100 Mg Tablet, 2 TAB PO HS for 30 Days, #60 TAB 0 Refills 09/01/25 Warfarin Sodium (Jantoven) 3 Mg Tablet, 1 TAB PO DAILY for 30 Days, #30 TAB 0 Refills 09/01/25 [place]-3 Fatty Acids/Fish Oil ([place] 3 1,000 mg Softgel) 300 Mg-1,000 Mg Capsule, 1 CAP PO BID for 30 Days, #90 CAP 0 Refills WITH MEALS 09/01/25 Ferrous Sulfate (Iron) 325 Mg (65 Mg Iron) Tablet, 325 MG PO AM, TAB 06/02/25 Gabapentin (Gabapentin) 100 Mg Capsule, 300 MG PO TID for NERVE PAIN , CAP 06/02/25 Duloxetine HCl (Duloxetine HCl) 30 Mg Capsule.dr, 30 MG PO DAILY for ANXIETY, CAP 06/02/25 Atorvastatin Calcium (LIPITOR) 40 Mg Tablet, 40 MG PO PM, TAB 06/02/25 Fluticasone Propionate (Fluticasone Propionate) 50 Mcg/Actuation [place].susp, 1 SPRAY NS AD PRN for ALLERGIES 06/02/25 Past Medical History Past Medical History: CAD, High Cholesterol, Heart Disease, Hypertension Past Surgical History: Other Surgical History Other: right and left heart cath ROS Dictation CONSTITUTIONAL: No chills, no fever, no weakness, no diaphoresis, no malaise. HEAD/FACE: No signs of trauma. EENT: No eye pain, no blurred vision, no tearing, no double vision, no ear pain, no ear discharge, no nose pain, no nasal congestion, no throat pain, no throat swelling, no mouth pain. RESPIRATORY: No cough, no orthopnea, no SOB, no stridor, no wheezing. CARDIOVASCULAR: No chest pain, no edema, no palpitations, no syncope. GASTROINTESTINAL/ABDOMINAL: No abdominal pain, no constipation, no diarrhea, no nausea, no vomiting. GENITOURINARY: No abnormal discharge, no dysuria, no frequent urination, no hematuria. No complaints of pain in the genitals. MUSCULOSKELETAL: Right groin pain INTEGUMENTARY: No change in color, no change in hair/nails, no dryness, no lesion, no lumps, no rash. NEUROLOGICAL/PSYCH: No anxiety, not depressed, no emotional problem, no headache, no numbness, no pre-existing deficit, no history of seizures, no tremors, no weakness. HEMATOLOGIC/LYMPHATIC: Not anemic, no history of blood clots, no apparent bleeding, no bruising, glands not swollen. All Systems Negative, Except as Noted. Physical Exam Physical Exam Dictation VITAL SIGNS: Reviewed. GENERAL APPEARANCE: Alert, oriented x3, no acute distress, obese. HEAD AND FACE: Non-traumatic. EYES: PERRL, pink conjunctivas, eyelid no trauma, anterior chamber clear. EARS: Pinnas intact and no signs of trauma or erythema. Ear canals clear and no discharge. TMs no erythema. NOSE: No discharge, no bleeding. OROPHARYNX: Mouth normal, teeth no caries, tongue pink. Pharynx clear, no erythema. Tonsils no exudates, no abscesses noted. Mucous membrane moist. NECK: Supple, non-tender, no thyromegaly, no masses, no JVD, no bruits. BREAST: Deferred. CHEST: No tenderness, no crepitus, no paradoxical movement, no retractions. LUNGS: Clear, well-ventilated, symmetric, no rales, no wheezing, no rhonchi, no stridor, good breath sounds bilaterally. HEART: Regular rate, regular rhythm, no murmur, no gallops. VASCULAR: No peripheral edema. ABDOMEN: Soft, positive bowel sounds, nondistended, no guarding, nontender, no rebound, no masses no hepatomegaly, no splenomegaly, no Prakash's sign, no hernias. RECTAL: Deferred. GENITAL: Deferred. NEUROLOGICAL: Normal speech, gross motor function intact, gross sensory function intact. MUSCULOSKELETAL: Neck nontender, full range of motion, back nontender, full range of motion. EXTREMITIES: Nontender, full range of motion. SKIN: Color pink, dry, no turgor, no rash, no lacerations, no abrasions, no contusions. LYMPHATICS: Deferred. Results Laboratory and Microbiology Lab and Micro Result Laboratory Tests Test 09/08/25 14:45 White Blood Count 7.5 K/uL (4.8-10.8) Red Blood Count 4.40 MIL/uL (4.00-5.50) Hemoglobin 10.5 g/dL (12.0-16.0) L Hematocrit 34.0 % (36-48) L Mean Corpuscular Volume 77.3 fL (79-99) L Mean Corpuscular Hemoglobin 23.9 pg (27.0-33.0) L Mean Corpuscular Hemoglobin Concent 30.9 g/dL (32.0-36.0) L Red Cell Distribution Width 21.3 % (11.0-15.5) H Platelet Count 440 K/uL (130-400) H Mean Platelet Volume 10.1 fL (7.5-10.5) Immature Granulocyte % (Auto) 0.4 % (0-1) Neutrophils (%) (Auto) 54.8 % (40.0-77.0) Lymphocytes (%) (Auto) 30.5 % (21.0-51.0) Monocytes (%) (Auto) 9.2 % (3.0-13.0) Eosinophils (%) (Auto) 4.0 % (0.0-8.0) Basophils (%) (Auto) 1.1 % (0.0-5.0) Neutrophils # (Auto) 4.1 K/uL (1.8-7.7) Lymphocytes # (Auto) 2.3 K/uL (1.0-4.8) Monocytes # (Auto) 0.7 K/uL (0.1-1.0) Eosinophils # (Auto) 0.30 K/uL (0.00-0.70) Basophils # (Auto) 0.08 K/uL (0.00-0.20) Absolute Immature Granulocyte (auto 0.03 K/uL (0-1) Nucleated Red Blood Cells 0.0 % (0.0-0.19) Red Blood Cell Morphology See comments Prothrombin Time 26.6 SEC (9.6-11.6) H Prothromb Time International Ratio 2.78 (0.85-1.15) H Activated Partial Thromboplast Time 32.8 SEC (26.3-35.5) Sodium Level 145 mmol/L (136-145) Potassium Level 3.9 mmol/L (3.5-5.1) Chloride Level 106 mmol/L (101-111) Carbon Dioxide Level 30 mmol/L (21-32) Blood Urea Nitrogen 13 mg/dL (7-18) Creatinine 0.8 mg/dL (0.5-1.0) Glomerular Filtration Rate Calc 81 mL/min (>90) Random Glucose 126 mg/dL (70-105) H Total Calcium 9.3 mg/dL (8.5-10.1) MDM CC: Right groin swelling Historian: Patient Comorbidities: Recent catheterization, on warfarin, cardiac disease Limitations by social determinants of health: None Differential diagnosis: Seroma versus pseudo aneurysm versus other Vital signs are stable Lab work is stable. INR stable. Goal is three. Ultrasound shows an 8.6 x 5.6 x 7.1 cm fluid collection with some septations. I discussed the plan with the IR. They reports that if the patient shows up on 09/09/2025 in the morning they will be able to drain it tomorrow. Patient updated. Recommend she continues with her warfarin in all home medications. Patient will be discharged and we will return to the emergency department in the morning. ED Course Orders Procedure Category Date Status Time Cbc With Differential LAB 09/08/25 Complete 14:18 Basic Metabolic Panel LAB 09/08/25 Complete 14:18 Prothrombin Time With LAB 09/08/25 Complete INR 14:18 Partial LAB 09/08/25 Complete Thromboplastin Time 14:18 Us Soft Tissue Groin US 10/20/25 Taken 14:18 Vital Signs Date Time Temp Pulse Resp B/P (MAP) Pulse Ox O2 Delivery O2 Flow Rate FiO2 09/08/25 13:59 98.8 77 16 119/59 96 Room Air 0 DX & DISP Disposition: Discharge Departure Impression: Primary Impression: Seroma after procedure Condition: Stable Additional Instructions: Return to the ED in the morning. IR will need to be consulted for a seroma drainage. Please take your warfarin and other home medications as prescribed. Return to the ED as needed. Referrals: SARA BUCHANAN MD (PCP) EVAN MONCADA DO Sep 08, 2025 15:51
[2025-09-08 16:22] VITALS: BP 125/72; PULSE 77; RESP 16; TEMP 98.8; O2SAT 96
--- NOTE | 2025-09-08 16:23 | HMCIMG ---
EXAM: US examination, right groin CLINICAL HISTORY: recent cardiac cath TECHNIQUE: Real-time ultrasound examination performed with image documentation. COMPARISON: Soft tissue imaging of the right lower extremity dated September 01, 2025 FINDINGS: Right groin: Interval regression of the fluid collection with some septations noted, now measuring 8.6 x 5.6 x 7.1 cm. IMPRESSION: 1. Interval regression of the right groin fluid collection, now measuring 8.6 x 5.6 x 7.1 cm, with some septations. No intralesional vascularity noted. /[place]
== END 2025-09-08 16:28 | disposition home or self-care (01) ==
LOC: EDH 13:55
DX: L76.34 Postprocedural seroma of skin and subcutaneous tissue following other procedure (principal); I25.10 Atherosclerotic heart disease of native coronary artery without angina pectoris; E78.00 Pure hypercholesterolemia, unspecified; I11.9 Hypertensive heart disease without heart failure; Z79.82 Long term (current) use of aspirin; Z79.01 Long term (current) use of anticoagulants; Z79.899 Other long term (current) drug therapy; Z98.890 Other specified postprocedural states
CPT/HCPCS: 36415; 76882; 80048; 85025; 85610; 85730; 99284

== ENCOUNTER 2025-09-09 08:25 | Emergency (ER) | payer OTHER, MEDICARE ==
[~2025-09-09] VITALS: Ht 149.9 cm; Wt 74.8 kg
[2025-09-09 09:29] LABS: IMMATURE GRANULOCYTE ABSOLUTE 0.02 K/uL (0-1); NUCLEATED RED BLOOD CELLS 0.0 % (0.0-0.19); PLATELET COUNT (AUTO) 371 K/uL (130-400); RED BLOOD CELL COUNT(AUTO) 4.24 MIL/uL (4.00-5.50); RED CELL DISTRIBUTION WIDTH 21.4 % (11.0-15.5); WHITE BLOOD COUNT (AUTO) 5.8 K/uL (4.8-10.8)
--- NOTE | 2025-09-09 09:30 | ERN ---
ED Note History of Present Illness Stated Complaint: OTHER Chief Complaint: Other Problems Time Seen by MD: 08:41 Dictation: 65-YEAR-OLD FEMALE PRESENTING TO THE EMERGENCY DEPARTMENT FOR RECURRENT SWELLING TO RIGHT GROIN STATUS POST ARE CATHETERIZATION WHICH WAS PERFORMED ON , PATIENT DEVELOPED SEROMA WAS DRAINED RECENTLY, REACCUMULATION AND ALSO NOW WAS HAVING CHEST PAIN PATIENT HAD RECENT HEART SURGERY FOR VALVE REPLACEMENT WITH DR. BLACK. Allergies: Coded Allergies: No Known Allergies (Unverified Allergy, Unknown, 06/08/14) Home Meds Reported Medications Aspirin (ASPIRIN 81MG CHEW TAB) 81 Mg Tab.chew, 1 TAB PO DAILY for 30 Days, #30 TAB 0 Refills 09/01/25 Metoprolol Tartrate (Metoprolol Tartrate) 25 Mg Tablet, 1 TAB PO BID for 30 Days, #60 TAB 0 Refills 09/01/25 Tizanidine HCl (Tizanidine HCl) 4 Mg Tablet, 1 TAB PO HS for 30 Days, #30 TAB 0 Refills 09/01/25 Omeprazole (Omeprazole) 20 Mg Tab.rap.dr, 1 TAB PO DAILY for 30 Days, #30 TAB 0 Refills 09/01/25 Magnesium Glycinate (Mag Glycinate) 100 Mg Tablet, 2 TAB PO HS for 30 Days, #60 TAB 0 Refills 09/01/25 Warfarin Sodium (Jantoven) 3 Mg Tablet, 1 TAB PO DAILY for 30 Days, #30 TAB 0 Refills 09/01/25 [place]-3 Fatty Acids/Fish Oil ([place] 3 1,000 mg Softgel) 300 Mg-1,000 Mg Capsule, 1 CAP PO BID for 30 Days, #90 CAP 0 Refills WITH MEALS 09/01/25 Ferrous Sulfate (Iron) 325 Mg (65 Mg Iron) Tablet, 325 MG PO AM, TAB 06/02/25 Gabapentin (Gabapentin) 100 Mg Capsule, 300 MG PO TID for NERVE PAIN , CAP 06/02/25 Duloxetine HCl (Duloxetine HCl) 30 Mg Capsule.dr, 30 MG PO DAILY for ANXIETY, CAP 06/02/25 Atorvastatin Calcium (LIPITOR) 40 Mg Tablet, 40 MG PO PM, TAB 06/02/25 Fluticasone Propionate (Fluticasone Propionate) 50 Mcg/Actuation [place].susp, 1 SPRAY NS AD PRN for ALLERGIES 06/02/25 Past Medical History Past Medical History: CAD, High Cholesterol, Other Additional Past Medical Hx: NERVE PAIN Surgical History: Other, Surgical History Other: R TIB FIB FX, HEART VALVE Review of System Dictation CONSTITUTIONAL: NEGATIVE FOR FEVER,CHILLS, AND WEIGHT LOSS EYES: NEGATIVE FOR INJURY, PAIN,REDNESS, AND DISCHARGE ENT: NEGATIVE FOR INJURY,PAIN OR SWELLING CARDIOVASCULAR: PER H PI RESPIRATORY: NEGATIVE FOR SHORTNESS OF BREATH, COUGH, AND WHEEZING, ABDOMEN/GI: NEGATIVE FOR ABDOMINAL PAIN, NAUSEA, VOMITING, DIARRHEA, AND CONSTIPATION BACK: NEGATIVE FOR INJURY AND PAIN : NEGATIVE FOR INJURY, BLEEDING AND DISCHARGE MS/EXTREMITY: PER HPI SKIN: NEGATIVE FOR RASH, AND DISCOLORATION NEURO: NEGATIVE FOR HEADACHE, WEAKNESS, NUMBNESS, TINGLING, AND SEIZURE PSYCH: NEGATIVE FOR SUICIDE IDEATION, HOMICIDAL IDEATION, AND HALLUCINATIONS Initial Vital Sign VS Vital Signs Date Time Temp Pulse Resp B/P (MAP) Pulse Ox O2 Delivery O2 Flow Rate FiO2 09/09/25 08:27 98.8 69 18 113/68 97 Room Air 0 09/09/25 10:51 21 Physical Exam Dictation GENERAL: AWAKE, ALERT, NAD HEAD/FACE: NORMOCEPHALIC, ATRAUMATIC EYES: PERRL, EOMI, VISION AT BASELINE ENT: ORAL CAVITY CLEAR, TMS CLEAR, NO SIGNS OF INFECTION NECK: TRACHEA MIDLINE, SUPPLE, NO NUCHAL RIGIDITY CARDIOVASCULAR: RRR, NORMAL S1/S2, NO MRGS, NO JVD RIGHT-SIDED CHEST WALL SURGICAL INCISION IS CLEAN DRY INTACT RESPIRATORY: CTAB, NO RESPIRATORY DISTRESS, NO RALES OR WHEEZES ABDOMEN: SOFT, NON-TENDER, NON-DISTENDED, NORMAL BOWEL SOUNDS, NO GUARDING OR REBOUND. RIGHT GROIN SHOWS SWELLING NON PULSATILE NO ACTIVE BLEEDING SKIN: WARM, DRY, NORMAL TURGOR, NO RASH MS/EXTREMITY: PULSES EQUAL, NO CYANOSIS, NEUROVASCULAR INTACT, FROM NEURO: COAX4, GCS 15, STRENGTH 5/5, CN 2-12 INTACT, NORMAL CEREBELLAR EXAM, NORMAL GAIT, PSYCH: NORMAL BEHAVIOR, MOOD, AND AFFECT NORMAL Results (Laboratory/Radiology) Laboratory/Radiology Laboratory Tests Test 09/09/25 09:20 White Blood Count 5.8 K/uL (4.8-10.8) Red Blood Count 4.24 MIL/uL (4.00-5.50) Hemoglobin 10.0 g/dL (12.0-16.0) L Hematocrit 33.8 % (36-48) L Mean Corpuscular Volume 79.7 fL (79-99) Mean Corpuscular Hemoglobin 23.6 pg (27.0-33.0) L Mean Corpuscular Hemoglobin Concent 29.6 g/dL (32.0-36.0) L Red Cell Distribution Width 21.4 % (11.0-15.5) H Platelet Count 371 K/uL (130-400) Mean Platelet Volume 10.1 fL (7.5-10.5) Immature Granulocyte % (Auto) 0.3 % (0-1) Neutrophils (%) (Auto) 58.4 % (40.0-77.0) Lymphocytes (%) (Auto) 30.4 % (21.0-51.0) Monocytes (%) (Auto) 5.7 % (3.0-13.0) Eosinophils (%) (Auto) 4.3 % (0.0-8.0) Basophils (%) (Auto) 0.9 % (0.0-5.0) Neutrophils # (Auto) 3.4 K/uL (1.8-7.7) Lymphocytes # (Auto) 1.8 K/uL (1.0-4.8) Monocytes # (Auto) 0.3 K/uL (0.1-1.0) Eosinophils # (Auto) 0.25 K/uL (0.00-0.70) Basophils # (Auto) 0.05 K/uL (0.00-0.20) Absolute Immature Granulocyte (auto 0.02 K/uL (0-1) Nucleated Red Blood Cells 0.0 % (0.0-0.19) Prothrombin Time 26.5 SEC (9.6-11.6) H Prothromb Time International Ratio 2.69 (0.85-1.15) H Activated Partial Thromboplast Time 29.6 SEC (26.3-35.5) Sodium Level 143 mmol/L (136-145) Potassium Level 4.0 mmol/L (3.5-5.1) Chloride Level 106 mmol/L (101-111) Carbon Dioxide Level 28 mmol/L (21-32) Blood Urea Nitrogen 12 mg/dL (7-18) Creatinine 0.7 mg/dL (0.5-1.0) Glomerular Filtration Rate Calc 95 mL/min (>90) Random Glucose 159 mg/dL (70-105) H Total Calcium 8.5 mg/dL (8.5-10.1) Total Bilirubin 0.4 mg/dL (0.2-1.0) Direct Bilirubin 0.1 mg/dL (0.0-0.3) Aspartate Amino Transf (AST/SGOT) 15 U/L (10-37) Alanine Aminotransferase (ALT/SGPT) 12 U/L (12-78) Alkaline Phosphatase 110 U/L (50-136) Troponin I High Sensitivity 6 ng/L (4-50) B-Type Natriuretic Peptide 113 pg/mL (0-100) H Total Protein 6.8 g/dL (6.0-8.3) Albumin 3.6 g/dL (3.5-5.0) Labs Reviewed?: Yes ED Course ED Course Orders Procedure Category Date Status Time B-Type Natriuretic LAB 09/09/25 Complete Peptide 09:03 12 Lead Ekg Tracing- EKG 09/09/25 Complete Technical 09:03 Cbc With Differential LAB 09/09/25 Complete 09:03 Basic Metabolic Panel LAB 09/09/25 Complete 09:03 Hepatic Function Panel LAB 09/09/25 Complete 09:03 Pt And Ptt LAB 09/09/25 Complete 09:03 Troponin I High LAB 09/09/25 Complete Sensitivity 09:03 Chest 1vw RAD 09/09/25 Resulted 09:03 Morphine 4mg Syg PHA 09/09/25 Complete (Morphine 4mg Syg) 09:04 Ondansetron 4mg Inj PHA 09/09/25 Complete (Zofran 4mg Inj) 09:04 Us Guidance Ndl Plcmt US 09/09/25 Taken IR Body Fluid Cell Count LAB 09/09/25 In Process 12:31 Body Fluid Cult W/ [place] 09/09/25 In Process Gram Stain 12:31 *Nursing CPOE 09/09/25 Transmitted Communication: 13:02 Current Medications Medications (Trade) Dose Ordered Sig/Jenna Route PRN Reason Start Time Stop Time Status Last Admin Dose Admin Morphine Sulfate (morPHINE 4MG SYG) 4 mg ONCE STAT IVP 09/09/25 09:04 09/09/25 09:08 DC 09/09/25 11:13 Ondansetron HCl (zoFRAN 4MG INJ) 4 mg ONCE STAT IVP 09/09/25 09:04 09/09/25 09:08 DC 09/09/25 11:12 Vital Signs Date Time Temp Pulse Resp B/P (MAP) Pulse Ox O2 Delivery O2 Flow Rate FiO2 09/09/25 10:51 73 18 120/62 96 Room Air* 0 21 09/09/25 08:27 98.8 69 18 113/68 97 Room Air 0 Medical Decision Making MDM MDM: DIFFERENTIAL DIAGNOSIS: RATIONALE: TESTS CONSIDERED AND ORDERED SECONDARY TO SHARED DECISION MAKING INCLUDE: LABS, ECG AND RADIOLOGY PREVIOUS OUTSIDE RECORDS REVIEWED: OLD ER VISITS. RISK OF COMPLICATION AND/OR MORBIDITY OR MORTALITY OF PATIENT MANAGEMENT: NONE MEDICATIONS-PER MEDICATION RECONCILIATION NEED FOR HOSPITALIZATION: PATIENT DOES MEET CRITERIA FOR HOSPITALIZATION. NEED FOR EMERGENCY MAJOR/MINOR SURGERY: NO THERE ARE NO SOCIAL CONCERNS WITH THIS PATIENT. PRESCRIPTION DRUG MANAGEMENT PRESCRIPTIONS WILL INCLUDE SYMPTOMATIC CARE PATIENT'S PRIOR EXTERNAL MEDICAL RECORDS FROM OTHER ER VISITS WERE REVIEWED BY ME INDICATED. PRIOR TESTING AND RESULTS FROM PREVIOUS VISITS WERE REVIEWED. PRIOR TESTS WERE TAKEN INTO ACCOUNT WITH MEDICAL DECISION MAKING AND RESOURCE UTILIZATION, INDEPENDENT HISTORIAN/HISTORIANS WERE USED TO OBTAIN COMPLETE MEDICAL HISTORY. I INDEPENDENTLY INTERPRETED THE TEST THAT WERE PERFORMED, RESULTS WERE REVIEWED BY ME AND CONSIDERED FINDINGS ON RADIOLOGY IF ORDERED. MEDICAL MANAGEMENT AND EXAMINATION INTERPRETATION DISCUSSIONS WERE HAD BY ME WITH OTHER QUALIFIED HEALTHCARE PROFESSIONALS INDICATED FOR THE PATIENT'S CARE. pt changed her mind about admission and now wants to leave AMA. COA x4. DX & DISP Disposition: AMA Departure Impression: Primary Impression: Chest pain Condition: Stable Referrals: SARA BUCHANAN MD (PCP) MACO GREWAL MD Sep 09, 2025 09:30
[2025-09-09 09:42] LABS: CREATININE 0.7 mg/dL (0.5-1.0); GLOMERULAR FILTR. RATE CALC 95.0 mL/min (>90); GLUCOSE,RANDOM 159.0 mg/dL (70-105); SODIUM SERUM 143.0 mmol/L (136-145); UREA NITROGEN, BLOOD 12.0 mg/dL (7-18)
[2025-09-09 09:46] LABS: INR 2.69 (0.85-1.15)
[2025-09-09 09:47] LABS: ASPARTATE AMINOTRANSFERASE 15.0 U/L (10-37); TOTAL PROTEIN, SERUM 6.8 g/dL (6.0-8.3)
--- NOTE | 2025-09-09 10:01 | NUR ---
PER AUBREY FROM LAB SHE WILL BE ENTERING AN ALTERNATE NUMBER/CORRECT RESULTS FOR PTS BNP
--- NOTE | 2025-09-09 10:33 | HMCIMG ---
EXAM: CR Chest, 1 View. CLINICAL HISTORY: cp COMPARISON: 07/26 6:15 EDT CR - CHEST 1VW FINDINGS: There is a large body habitus with considerable breast and soft tissue attenuation overlying the chest. LUNGS: There is no mass, infiltrate, or acute pulmonary abnormality. PLEURAL SPACES: No pleural effusion or pneumothorax. MEDIASTINUM: Cardiac size and mediastinal contours within normal limits. BONES: No aggressive appearing osseous lesion seen. IMPRESSION: No acute cardiopulmonary pathology is evident. /[place]
--- NOTE | 2025-09-09 11:11 | EKG ---
[facility] Test Date: 2025-09-09 Test Time: 09:45:31 Pat Name: JAMES ZURITA Department: ED Room: Gender: F Material Handler: [id number] : 1960 Requested By: MACO GREWAL Order Number: [id number] Reading MD: Umer An Measurements Intervals [place] Rate: 63 P: 35 DC: 191 QRS: 17 QRSD: 99 T: 61 QT: 432 QTc: 443 Interpretive Statements Sinus rhythm Probable left atrial enlargement Low voltage, precordial leads Compared to ECG 07/27/2025 06:44:43 Low QRS voltage now present Ventricular premature complex(es) no longer present Early repolarization no longer present ST (T wave) deviation no longer present Myocardial infarct finding no longer present Electronically Signed On 09-10-2025 16:33:08 CDT by Umer An Please click the below link to view image of tracing.
--- NOTE | 2025-09-09 12:29 | NUR ---
PT IR FOR DRAINING OF THE R GROIN SEROMA
--- NOTE | 2025-09-09 12:45 | NUR ---
REPORT POST IR 200 ML FLUID REMOVED AND SENT TO LAB.PT TOLERATED PROCEDURE WELL.
[2025-09-09 12:55] VITALS: BP 111/81; PULSE 75; RESP 18; TEMP 98.3; O2SAT 96
--- NOTE | 2025-09-09 13:05 | NUR ---
ULTRASOUND GUIDED RIGHT GROIN SEROMA ASPIRATION PROCEDURE PERFORMED BY DR. PRIYA LUTHER. PUNCTURE SITE RIGHT GROIN AND PATIENT TOLERATED PROCEDURE WELL. SEROMA ASPIRATE OF 200 ML COLLECTED AND SENT TO LAB. END OF PROCEDURE AT 1240. ASPIRATION NEEDLE REMOVED AND PRESSURE DRESSING APPLIED- NO BLEEDING NOTED. PATIENT IS ALERT AND IN STABLE CONDITION. REPORT CALLED TO SUSANA SOARES IN ED AND PATIENT TRANSFERRED BACK WITH NO C/O PAIN.
--- NOTE | 2025-09-09 14:00 | NUR ---
PT DOES NOT WANT TO BE ADMITTED.DENIES ANY CHEST PAIN AND JUST WOULD LIKE TO GO HOME. DR GREWAL AWARE.
[2025-09-09 16:08] LABS: BODY FLUID RBC 168 /cu. mm.; BODY FLUID WBC 865 /cu. mm.
[2025-09-09 16:15] LABS: BF EOSINOPHIL 1 %; BF LYMPHOCYTE 98 %; BF MONOCYTE 1 %; BF TOTAL CELLS COUNTED 100
[2025-09-09 16:18] LABS: COLOR,BODY FLUID LT YELLOW (LT YELLOW); SPECIMENTYPE,BODY FLUID ASPIRATE; TOTAL VOLUME,BODY FLUID 250 mL
[2025-09-09 16:19] LABS: APPEARANCE BODY FLUID SLIGHTLY CLOUDY (CLEAR)
--- NOTE | 2025-09-17 08:48 | HMCIMG ---
Ultrasound assistance for right inguinal seroma aspiration CLINICAL INDICATION: This is a patient who has had cardiac procedure with a seroma patient underwent a cyst aspiration on 09/01/2025. The fluid has reaccumulated.. Coagulation profile is within normal limits. Risks and benefits of this procedure were discussed with the patient, with risks including infection, puncture of artery or vein, excessive bleeding and injury to nerve. The patient understood the risks and provide written and verbal consent for the procedure. TECHNIQUE: The patient was placed in a prone position on the table, and an appropriate location for skin puncture was marked on the skin surface in right inguinal region. The overlying skin was prepped and draped in a sterile fashion. 10 cc of 1% lidocaine solution were used to provide subcutaneous and deep soft tissue local anesthesia. A 4 [place] [employer] catheter was advanced into the seroma under the ultrasound guidance, yielding sluggish return of clear fluid. A total of 200 cc fluid was collected in one tube and sent to the laboratory for analysis. Postaspiration 40 cc of air was infused. The needle was removed and a bandage applied to the puncture site. No immediate complications were noted. IMPRESSION: Successful ultrasound guided seroma aspiration. No immediate complications.
== END 2025-09-09 14:29 | disposition left against medical advice (07) ==
LOC: EDH 08:25
DX: R07.89 Other chest pain (principal); E78.00 Pure hypercholesterolemia, unspecified; I25.10 Atherosclerotic heart disease of native coronary artery without angina pectoris; Z79.01 Long term (current) use of anticoagulants; Z79.82 Long term (current) use of aspirin; Z79.899 Other long term (current) drug therapy
CPT/HCPCS: 10005; 99285; 96374; 71045; 96375; 80076; 84484; 80048; 83880; 85025; 89051; 85610; 85730; 87071; 87205; 36415; 76942; 93005; J2405; J2270; C1729